=== PATIENT | male | born 2000 | race Caucasian/White ===

== ENCOUNTER 2023-06-01 14:17 | Emergency (ER) | payer BC ==
[~2023-06-01] VITALS: Ht 188 cm; Wt 93.0 kg
[2023-06-01 14:17] VITALS: BP_SYST 135; PULSE 110; RESP 19; TEMP 98.3; O2SAT 99
== END 2023-06-01 14:41 | disposition home or self-care (01) ==
LOC: SED 14:17
DX: R07.89 Other chest pain (principal); F12.90 Cannabis use, unspecified, uncomplicated; Z79.899 Other long term (current) drug therapy
CPT/HCPCS: 71045; 99283